=== PATIENT | male | born 1985 | race Caucasian/White ===

== ENCOUNTER → 2019-04-21 | Outpatient (CLI) | payer BC ==
--- NOTE | 2019-04-21 13:42 | US ---
EXAMINATION TYPE: US scrotum with doppler. Grayscale and color Doppler Duplex imaging performed of t he scrotum. DATE OF EXAM: 04/21/2019 COMPARISON: NONE CLINICAL HISTORY: N50.89 DISORDER OF MALE GENITAL ORGANS. Pain for 3- 6 months rt teste EXAM MEASUREMENTS: TESTICLES: Right Testicle: 3.5 x 1.7 x 2.8 cm Left Testicle: 3.8 x 1.6 x 2.6 cm EPIDIDYMIS HEAD: Right Epididymis: 1.2 cm Left Epididymis: 1.0 cm Doppler performed to assess for testicular vascularity; good bilateral color flow and waveforms are s een. There is no evidence of testicular torsion. Presence of hydroceles: no Presence of varicoceles: no IMPRESSION: No distinct abnormality seen.
== END ==
LOC: RADUSWWP 13:00
PROVIDERS: ATTEND Family Medicine
DX: N50.89 Other specified disorders of the male genital organs (principal)
CPT/HCPCS: 76870; 93975

== ENCOUNTER 2024-06-13 09:37 | Day surgery (SDC) | payer BC ==
[2024-06-10 10:11] VITALS: BMI 29.5
[~2024-06-13 09:37] MED LIST: LACTATED RINGERS 1,000 ML IV SCH
[2024-06-13] MEDS: IV FLUID CONTINUATION 1,000 ML IV ONE (09:43)
[2024-06-13 09:57] VITALS: TEMP 96.7
[2024-06-13] MEDS ORDERED: fentaNYL (PF) 50 MCG/ML 2 ML AMP ONE (10:23)
[2024-06-13] MEDS ORDERED: PROPOFOL 10 MG/ML 20 ML VIAL IV ONE (10:23)
[2024-06-13] MEDS ORDERED: LIDOCAINE 2% (PF) 20 MG/ML 5 ML VIAL ONE (10:23)
[2024-06-13 10:53] VITALS: RESP 16
[2024-06-13 11:05] VITALS: BP 122/83; PULSE 82
--- NOTE | 2024-06-13 12:50 | P.OP ---
Date of Procedure: 06/13/24 Preoperative Diagnosis: GERD Postoperative Diagnosis: 1. Gastritis 2. Small Hiatal Hernia Procedure(s) Performed: EGD with Biopsy Anesthesia: other (Sedation) Surgeon: Kristian Loya Pathology: other (Antral Biopsies) Condition: stable Disposition: PACU Description of Procedure: Informed consent was obtained. The procedure, its risks, benefits, and alternatives were discussed. The patient was placed in the left lateral decubitus position.. The patient was sedated by anesthesia. The endoscope was inserted into the oropharynx and guided under direct vision into the esophagus, stomach, and duodenum. The duodenal bulb and second portion were unremarkable. The scope was withdrawn to the stomach and retroflexed. There was no increased fluid, food or secretions in the upper gastrointestinal tract. There was some gastritis appreciated. Biopsies were obtained for Helicobacter pylori. No erosio ns or ulcers. The scope was withdrawn to the esophagus. There was a small hiatal hernia appreciated. No Barretts or esophagitis. The patient tolerated the procedure very well. The patient was then transferred to the recovery area in good condition. There were no apparent complications.
== END 2024-06-13 11:12 | disposition home or self-care (01) ==
LOC: ORWHC2ENDO 09:37
PROVIDERS: ATTEND Surgery
DX: K21.9 Gastro-esophageal reflux disease without esophagitis (principal); K29.50 Unspecified chronic gastritis without bleeding; K44.9 Diaphragmatic hernia without obstruction or gangrene; F32.A Depression, unspecified; Z79.899 Other long term (current) drug therapy
CPT/HCPCS: 43239; J3010; J2704; J2003; 88305

== ENCOUNTER 2024-10-24 14:40 | Emergency (ER) | payer BC ==
[2024-10-24 14:52] VITALS: BP 141/94; PULSE 90; RESP 20; TEMP 97.8
--- NOTE | 2024-10-24 15:24 | ED ---
Chest Pain HPI - General Source: patient, RN notes reviewed Mode of arrival: ambulatory Limitations: no limitations <Tana Dee - Last Filed: 10/24/24 15:22> - General Source: patient, RN notes reviewed Mode of arrival: ambulatory Limitations: no limitations <Chavez Banda - Last Filed: 10/25/24 00:43> - General Chief Complaint: Chest Pain Stated Complaint: Chest pain,Tingling hands,Headache Time Seen by Provider: 10/24/24 14:57 - History of Present Illness Initial Comments: Quick [id number] male with no reported medical history presenting to emergency room for chief complaint of chest pain with radiation into his left arm that occurred this afternoon while he was at work. States he felt dizzy and nearly passed out however denies syncope. Denies associated nausea, vomiting, diaphoresis. States that the pain has been intermittent. Endorses a headache currently (Tana Dee) This is a 39-year-old male to the ER for evaluation of some chest pain left- sided chest pain that occurred after having initial headache this occurred during a dizzy and nearly syncopal event he had some diaphoresis during this event and felt cool, clammy in both of his hands chest pain and dizziness, headache are improved but symptoms were significant (Chavez Banda) - Related Data Home Medications Medication Instructions Recorded Confirmed Escitalopram [Lexapro] 5 mg PO DAILY 06/10/24 06/13/24 Pantoprazole Sodium [Protonix] 60 mg PO HS 06/10/24 06/13/24 Testosterone [Androgel 1.62% Gel 2.5 gram TOPICAL DAILY 06/10/24 06/13/24 Packet] Allergies Allergy/AdvReac Type Severity Reaction Status Date / Time bee venom protein (honey bee) Allergy Rash/Hives Verified 10/24/24 14:52 Review of Systems ROS Other: All systems not noted in ROS Statement are negative. <Tana Dee - Last Filed: 10/24/24 15:22> ROS Other: All systems not noted in ROS Statement are negative. <Chavez Banda - Last Filed: 10/25/24 00:43> ROS Statement: Those systems with pertinent positive or pertinent negative responses have been documented in the HPI. Past Medical History Past Medical History: GERD/Reflux History of Any Multi-Drug Resistant Organisms: None Reported Past Surgical History: Ear Surgery Additional Past Surgical History / Comment(s): tubes Past Anesthesia/Blood Transfusion Reactions: No Reported Reaction Additional Past Anesthesia/Blood Transfusion Reaction / Comment(s): no blood transfusion Past Psychological History: Anxiety Smoking Status: Never smoker Past Alcohol Use History: Rare Past Drug Use History: Marijuana - Past Family History Father Family Medical History: Cancer Additional Family Medical History / Comment(s): blood <Hunter Deeoe - Last Filed: 10/24/24 15:22> General Exam Limitations: no limitations <Stieler,Tana - Last Filed: 10/24/24 15:22> General appearance: alert, in no apparent distress Head exam: Present: atraumatic, normocephalic, normal inspection Eye exam: Present: normal appearance, PERRL, EOMI. Absent: scleral icterus, conjunctival injection, periorbital swelling ENT exam: Present: normal exam, mucous membranes moist Neck exam: Present: normal inspection. Absent: tenderness, meningismus, lymphadenopathy Respiratory exam: Present: normal lung sounds bilaterally. Absent: respiratory distress, wheezes, rales, rhonchi, stridor Cardiovascular Exam: Present: regular rate, normal rhythm, normal heart sounds. Absent: systolic murmur, diastolic murmur, rubs, gallop, clicks GI/Abdominal exam: Present: soft, normal bowel sounds. Absent: distended, tende rness, guarding, rebound, rigid Extremities exam: Present: normal inspection, full ROM, normal capillary refill. Absent: tenderness, pedal edema, joint swelling, calf tenderness Back exam: Present: normal inspection Neurological exam: Present: alert, oriented X3, CN II-XII intact Psychiatric exam: Present: normal affect, normal mood Skin exam: Present: warm, dry, intact, normal color. Absent: rash <Chavez Banda - Last Filed: 10/25/24 00:43> - General Exam Comments Initial Comments: Visual Physical Exam Vital signs reviewed General: Well-appearing, nontoxic, no acute distress. Head: Normocephalic, atraumatic Eyes: PERRLA, EOMI ENT: Airway patent Chest: Nonlabored breathing Skin: No visual rash, normal skin tone Neuro: Alert and oriented 3 Musculoskeletal: No gross abnormalities (Stieler,Tana) Course <VeronikaChavez [place] - Last Filed: 10/25/24 00:43> Vital Signs 10/24/24 14:48 Temperature 97.8 F Pulse Rate 90 Respiratory 20 Rate Blood Pressure 141/94 O2 Sat by Pulse 99 Oximetry - Reevaluation(s) Reevaluation #1: 10/25/24 00:42 Medical records reviewed (Chavez Banda) Reevaluation #2: 10/25/24 00:42 Patient symptoms unchanged (Chavez Banda) Reevaluation #3: 10/25/24 00:42 Patient informed of results and questions answered (Chavez Banda) Reevaluation #4: Was pt. sent in by a medical professional or institution ([facility], [facility], urgent care, hospital, or [facility]...) When possible be specific @ -no Did you speak to anyone other than the patient for history (EMS, parent, family, police, friend...)? What history was obtained from this source @ -no Did you review nursing and triage notes (agree or disagree)? Why? @ -agree Are old charts reviewed (outside hosp., previous admission, EMS record, old EKG, old radiological studies, urgent care reports/EKG's, [facility] records)? Report findings @ -yes Differential Diagnosis (chest pain, altered mental status, abdominal pain women, abdominal pain men, vaginal bleeding, weakness, fever, dyspnea, syncope, headache, dizziness, GI bleed, back pain, seizure, CVA, palpatations, mental health, musculoskeletal)? @ -prior EKG interpreted by me (3pts min.). @ -yes X-rays interpreted by me (1pt min.). @ -yes negative for acute disease CT interpreted by me (1pt min.). @ -no U/S interpreted by me (1pt. min.). @ -no What testing was considered but not performed or refused? (CT, X-rays, U/S, labs)? Why? @ -none What meds were considered but not given or refused? Why? @ -none Did you discuss the management of the patient with other professionals (professionals i.e. [facility], [employer], lab, RT, psych nurse, social insurance analyst, hot wire glass tube cutter, teacher, forest officer, watch case polisher)? Give summary @ -no Was smoking cessation discussed for >3mins.? @ -no Was critical care preformed (if so, how long)? @ -no Were there social determinants of health that impacted care today? How? (Homelessness, low income, unemployed, alcoholism, drug addiction, transportation, low edu. Level, literacy, decrease access to med. care, penitentiary, rehab)? @ -none Was there de-escalation of care discussed even if they declined (Discuss DNR or withdrawal of care, Hospice)? DNR status @ -no What co-morbidities impacted this encounter? (DM, HTN, Smoking, COPD, CAD, Cancer, CVA, ARF, Chemo, Hep., AIDS, mental health diagnosis, sleep apnea, morbid obesity)? @ -none Was patient admitted / discharged? Hospital course, mention meds given and route, prescriptions, significant lab abnormalities, going to OR and other pertinent info. @ - Undiagnosed new problem with uncertain prognosis? @ -no Drug Therapy requiring intensive monitoring for toxicity (Heparin, Nitro, Insulin, Cardizem)? @ -no Were any procedures done? @ -no Diagnosis/symptom? @ - Acute, or Chronic, or Acute on Chronic? @ -Acute Uncomplicated (without systemic symptoms) or Complicated (systemic symptoms)? @ -Complicated Side effects of treatment? @ -no Exacerbation, Progression, or Severe Exacerbation? @ -exacerbation Poses a threat to life or bodily function? How? (Chest pain, [place], [place], pneumonia, PE, COPD, DKA, ARF, appy, cholecystitis, CVA, Diverticulitis, Homicidal, Suicida l, threat to staff... and all critical care pts) @ -yes (Chavez Banda) Reevaluation #5: Differential Chest Pain: Stable Angina, Unstable Angina, STEMI, NSTEMI Aortic Dissection, Pneumothorax, Musculoskeletal, Esophageal Spasm GERD, Cholecystitis, Pancreatitis, Zoster, this is not meant to be an all-inclusive list. (Chavez Banda) Chest Pain MDM <Tana Dee - Last Filed: 10/24/24 15:22> <Chavez Banda - Last Filed: 10/25/24 00:43> - MDM I completed the quick note portion of this chart signed Tana Dee PA-C (Tana Dee) 39 male to the ER for evaluation of chest pain, chest pain and headache after a near syncopal event CT brain and CTA chest negative for acute disease troponin negative EKG normal patient can be discharged home (Chavez Banda) Disposition <Tana Dee - Last Filed: 10/24/24 15:22> Is patient prescribed a controlled substance at d/c from ED?: No Time of Disposition: 20:10 <Chavez Banda - Last Filed: 10/25/24 00:43> Clinical Impression: Near syncope, Chest pain Disposition: HOME SELF-CARE Condition: Good Instructions (If sedation given, give patient instructions): Chest Pain (ED), Near Syncope (ED) Referrals: Zeus Mae DO [Primary Care Provider] - 1-2 days
[2024-10-24 16:00] LABS: Basophils % (A) 1 %; Eosinophils # (A) 0.2 k/uL (0-0.7); Eosinophils % (A) 3 %; HCT 45.6 % (39.0-53.0); HGB 15.3 gm/dL (13.0-17.5); Lymphocytes # (A) 1.5 k/uL (1.0-4.8); Lymphocytes % (A) 23 %; MCH 29.3 pg (25.0-35.0); MCHC 33.6 g/dL (31.0-37.0); MCV 87.3 fL (80.0-100.0); Mean Platelet Volume 8.4; Monocytes # (A) 0.4 k/uL (0-1.0); Monocytes % (A) 6 %; Neutrophils # (A) 4.5 k/uL (1.3-7.7); Neutrophils % (A) 66 %; Platelet Count 250 k/uL (150-450); RBC 5.23 m/uL (4.30-5.90); RDW 12.8 % (11.5-15.5); WBC 6.8 k/uL (3.8-10.6)
[2024-10-24 16:09] LABS: ALT 33 U/L (4-49); AST 29 U/L (17-59); African American GFR (CKD) >90 (>60 ml/min/1.73 sqM); Albumin 4.8 g/dL (3.5-5.0); Alkaline Phosphatase 78 U/L (38-126); Anion Gap 9 mmol/L; Blood Urea Nitrogen 16 mg/dL (9-20); Calcium 9.6 mg/dL (8.4-10.2); Carbon Dioxide 26 mmol/L (22-30); Chloride 104 mmol/L (98-107); Glucose 109 mg/dL (74-99); Lipase 128 U/L (23-300); Magnesium 2.3 mg/dL (1.6-2.3); Non-African American GFR(CKD) >90 (>60 ml/min/1.73 sqM); Potassium 3.8 mmol/L (3.5-5.1); Sodium 139 mmol/L (137-145); Total Bilirubin 0.6 mg/dL (0.2-1.3); Total Protein 7.5 g/dL (6.3-8.2)
[2024-10-24 16:17] LABS: INR 0.9 (<1.2); Partial Thromboplastin Time 24.6 sec (22.0-30.0); Prothrombin Time 10.3 sec (10.0-12.5)
--- NOTE | 2024-10-24 16:26 | XR ---
EXAMINATION TYPE: XR chest 2V DATE OF EXAM: 10/24/2024 CLINICAL INDICATION: Male, 39 years old with history of Chest Pain, TECHNIQUE: Frontal and lateral views of the chest are obtained. COMPARISON: None FINDINGS: There is no focal air space opacity, pleural effusion, or pneumothorax seen. The cardiac silhouette size is within normal limits. The osseous structures are intact. IMPRESSION: No acute process. [facility], , 10/24/2024 4:24 PM
[2024-10-24] MEDS ORDERED: SODIUM CHLORIDE 0.9% 1,000 ML IV ONE (17:44)
--- NOTE | 2024-10-24 19:50 | CT ---
EXAMINATION TYPE: CT brain wo con DATE OF EXAM: 10/24/2024 7:15 PM COMPARISON: 04/15/2010. CLINICAL INDICATION: Male, 39 years old with history of leyva, Chest pain and syncope TECHNIQUE: Brain: Axial CT images of the brain were obtained with coronal and sagittal reformats created and rev iewed. Contrast used: None. Oral contrast used: None. CT DLP: 1876.7 mGycm, Automated exposure control for dose reduction was used. FINDINGS: Brain: Extra-axial spaces: No abnormal extra-axial fluid collections. Ventricular system: Within normal limits Cerebral parenchyma: No acute intraparenchymal hemorrhage or mass effect. The mathias-white junction is well differentiated. Cerebellum: Unremarkable. Mass effect: No evidence of midline shift. Intracranial vasculature: unremarkable Soft tissues: Normal. Calvarium/osseous structures: No depressed skull fracture. Paranasal sinuses and mastoid air cells: Mild scattered paranasal sinus disease. Visualized orbits: Orbital contents are intact. IMPRESSION: No acute intracranial process. [facility], , 10/24/2024 7:48 PM
--- NOTE | 2024-10-24 19:53 | CT ---
EXAMINATION TYPE: CT angio chest DATE OF EXAM: 10/24/2024 7:15 PM COMPARISON: Chest radiograph from same day. . CLINICAL INDICATION: Male, 39 years old with history of syncope; Chest pain and syncope TECHNIQUE/CONTRAST: CTA scan of the thorax is performed with IV Contrast, patient injected with 100 mL of Isovue 300, MIP images are created and reviewed these are created on a separate workstation.. CT DLP: 1876.7 mGycm, Automated exposure control for dose reduction was used. FINDINGS: Lungs/Pleura: No evidence of focal consolidation, pleural effusion or pneumothorax. For granuloma in the right upper lobe. Airway: Large airways are patent. Heart: Size within normal limits. No significant coronary artery calcifications. Vasculature: Limited evaluation due to bolus timing, no evidence for central pulmonary embolus. The lobar, segmental and subsegmental branches are limited due to bolus timing. The pulmonary artery is o f normal size. Mediastinum: No gross evidence of adenopathy. Musculoskeletal: No acute osseous abnormalities Soft Tissues/lymph nodes: Unremarkable. Lower neck: No significant findings. Upper Abdomen: Gastric diverticulum left adrenal gland. IMPRESSION: No evidence of central pulmonary embolism. Limited evaluation of the segmental and subsegmental branc hes. Follow up recommendations for incidental pulmonary nodules, if there are any, are per [employer] [employer] or [employer]. https://radiopaedia.org/articles/llwdzleglm-hubthzp-mkpbdqtje-lqouns-ybthcvaympfiubq-7?lang=us [facility], , 10/24/2024 7:51 PM
== END 2024-10-24 21:30 | disposition home or self-care (01) ==
LOC: EC 14:40
DX: R55 Syncope and collapse (principal); R07.9 Chest pain, unspecified; Z91.030 Bee allergy status
CPT/HCPCS: 36415; 93005; 85379; 83880; 80053; 83690; 83735; 84484; 85025; 85610; 85730; 71046; 70450; 71275; 99285; Q9967